=== PATIENT | male | born 1950 | race Caucasian/White ===

== ENCOUNTER 2021-04-07 10:03 | Day surgery (SDC) | payer MEDICARE, OTHER, SELFPAY ==
[2021-04-07 10:15] VITALS: BP 125/87; PULSE 92; RESP 16; TEMP 36.6; O2SAT 97; BMI 28.2
[2021-04-07] MEDS: Lactated Ringers 1,000 ML 15 ML IV (10:42)
--- NOTE | 2021-04-07 11:02 | PCM.HP.BLA ---
History and Physical Date of Admission: 04/07/21 Intake Vital Signs 04/03/21 09:23 Height 6 ft 2 in Weight: 224 lb BMI 28.8 Respiration 18 Intake Visit Reasons: PEG TUBE Chief Complaint: peg [employer] Required: No Is patient in pain?: No Allergies No Known Allergies Allergy (Unverified 04/03/21 09:22) Medications clopidogrel 75 mg tablet 75 mg PO DAILY 03/25/21 [History Confirmed 04/03/21] hydrochlorothiazide 25 mg tablet 25 mg PO DAILY 03/25/21 [History Confirmed 04/03/21] metoprolol succinate 50 mg tablet,extended release 24 hr 50 mg PO DAILY 03/25/21 [History Confirmed 04/03/21] pravastatin 80 mg tablet 80 mg PO DAILY 03/25/21 [History Confirmed 04/03/21] warfarin 2 mg tablet 2 mg PO DAILY 03/25/21 [History Confirmed 04/03/21] PFSH Surgical History History of appendectomy S/P aortic bifurcation bypass graft Family History Father Cancer LUNG Uncle Cancer SKIN CANCER Social History household members: spouse Smoking Status: Former smoker quit date: 04/05/14 pack-years: 144 HPI HPI HPI: MICHELLE FISCHER, is a 70 M who presents to the office today for PEG tube. The patient has tongue cancer and is planning on having radiation therapy soon. Patient was sent in for PEG tube placement for possible dysphagia. ROS General General: Yes weight change, appetite and fatigue; No colon cancer, breast cancer or weakness HEENT HEENT: No difficulty swallowing, eye injury, eye surgery, swollen glands or hoarseness Endo Endocrine: No thyroid disease, diabetes mellitus, thyroid cancer, Hair loss, heat intolerance or cold intolerance Skin Skin: Yes changing moles; No rash Breast Breast: No left breast lump, right breast lump, nipple discharge, breast pain, abnormal mammogram, abnormal US or breast enlargement Musc Musculoskeletal: No back problems, arthritis, rheumatoid arthritis, gout or joint pain Cardio Cardiovascular: Yes atrial fibrillation and high blood pressure; No murmur, pacemaker, heart disease, heart attack, heart stent, palpitations, shortness of breat with exertion or chest pain Psych Psychiatric: No depression, anxiety or hearing voices Resp Respiratory: No shortness of breath, No sleep apnea, No cough, No COPD, No asthma, No emphysema and No wheezing Gastro Gastrointestinal: No abdominal pain, No nausea or vomiting, No diarrhea, No constipation, No blood in stool, No acid reflux, No hemorrhoids, No ulcers, No gallbladder problem and No black,tarry stools Melo Hematologic: Yes blood thinners, No blood disorders, No bleeding, No anemia and No blood clots Neuro Neurologic: No system reviewed and no additional complaints, except as documented, No as per HPI, No abnormal gait, No abnormal hearing, No abnormal movements, No abnormal speech, No behavioral changes, No burning sensations, No confusion, No convulsions, No disequilibrium, No dizziness, No localized weakness, No frequent falls, No headache(s), No lack of coordination, No loss of vision, No memory loss, No numbness, No other visual disturbances, No radicular pain, No restless legs, No sensory deficit, No syncope, No tingling, No tremor(s), No weakness and No other Exam Const General: cooperative Orientation: alert and oriented x3 HENMT Head: normal to inspection Neck Neck: normal visual inspection and full ROM Chest Chest palpation & inspection: normal inspection of the chest Resp Effort & Inspection: normal respiratory effort Auscultation: clear to auscultation bilaterally Cardio Rate: regular rate Rhythm: regular rhythm GI Inspection: non-distended Palpation: soft and nontender Skin General: no rashes or lesions noted Neuro General: patient alert and patient oriented x3 Extrem General: full ROM Psych Appearance: grossly normal Mental Status: mental status grossly normal Assessment and Plan Assessment and Plan (1) Malignant neoplasm of dorsal tongue: Status: Acute Orders: Orders: EGD Today Plan - Dr. Rene Brown MD: I explained endoscopy and PEG placement in detail to the patient. I explained the risks including but not limited to stroke or heart attack with anesthesia, perforation of the GI tract, bleeding, infection. I explained that any of these could necessitate further emergency surgery. The patient understands and all questions were answered sufficiently. The patient wishes to proceed with procedure. I have asked the patient to stop his blood thinners as of today and I will perform procedure on Wednesday. Rene Brown MD Pager: [facility] [address] [place] [address], [address] [place] [address] Office: I have re-examined the patient. There are no clinical changes since date of exam.
[2021-04-07 11:25] VITALS: BP 113/84; BP 125/87; PULSE 94; RESP 16; TEMP 36.3; O2SAT 96
--- NOTE | 2021-04-07 11:26 | OP.EGD_ITS ---
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 Refer to note in patient chart for documentation of history and physical. Complications: No immediate complications. Estimated blood loss: None. Procedure: Pre-Anesthesia Assessment: - Prior to the procedure, a History and Physical was performed, and patient medications and allergies were reviewed. The patient's tolerance of previous anesthesia was also reviewed. The risks and benefits of the procedure and the sedation options and risks were discussed with the patient. All questions were answered, and informed consent was obtained. Prior Anticoagulants: The patient has taken Plavix (clopidogrel), last dose was 4 days prior to procedure. After reviewing the risks and benefits, the patient was deemed in satisfactory condition to undergo the procedure. After obtaining informed consent, the endoscope was passed under direct vision. Throughout the procedure, the patient's blood pressure, pulse, and oxygen saturations were monitored continuously. The gastroscope was introduced through the mouth, and advanced to the second part of duodenum. The upper GI endoscopy was accomplished without difficulty. The patient tolerated the procedure well. Scope In: 11:12:18 AM Scope Out: 11:19:08 AM Total Procedure Duration Time 0 hours 6 minutes 50 seconds Findings: The patient was placed in the supine position for PEG placement. The stomach was insufflated to appose gastric and abdominal holden. A site was located in the body of the stomach with excellent transillumination and manual external pressure for placement. The abdominal wall was marked and prepped in a sterile manner. The area was anesthetized with 5 mL of 0.5% lidocaine. The trocar needle was introduced through the abdominal wall and into the stomach under direct endoscopic view. A snare was introduced through the endoscope and opened in the gastric lumen. The guide wire was passed through the trocar and into the open snare. The snare was closed around the guide wire. The endoscope and snare were removed, pulling the wire out through the mouth. A skin incision was made at the site of needle insertion. The externally removable 20 Fr EndoVive Safety gastrostomy tube was lubricated. The G-tube was tied to the guide wire and pulled through the mouth and into the stomach. The trocar needle was removed, and the gastrostomy tube was pulled out from the stomach through the skin. The external bumper was attached to the gastrostomy tube, and the tube was cut to remove the guide wire. The final position of the gastrostomy tube was confirmed by relook endoscopy, and skin marking noted to be 4 cm at the external bumper. The final tension and compression of the abdominal wall by the PEG tube and external bumper were checked and revealed that the bumper was loose and lightly touching the skin and that the PEG balloon was loose and lightly touching the stomach. The feeding tube was capped, and the tube site cleaned and dressed. Impression: - An externally removable PEG placement was successfully completed. - No specimens collected. Recommendation: - Please follow the post-PEG recommendations including: external bolster snug to abdominal wall, change dressing once per day and clean site with soap and water daily and dry thoroughly. - Discharge patient to home. - Resume previous diet. - Continue present medications. - Resume Coumadin (warfarin) tomorrow and Plavix (clopidogrel) tomorrow at prior doses. 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 All rights reserved. The codes documented in this report are preliminary and upon human relations manager review may be revised to meet current compliance requirements. Rene Brown MD 04/07/2021 11:25:48 AM This report has been signed electronically. Number of Addenda: 0 Note Initiated On: 04/07/2021 10:39 AM
--- NOTE | 2021-04-07 11:26 | OP.CCLET_ITS ---
04/07/2021 Cliff Box Md Re : Upper GI endoscopy procedure for Filipe Kulkarni Dear Dr. Box This procedure was performed on Wednesday, April 07, 2021. My impressions and recommendations are as follows: Impressions : - An externally removable PEG placement was successfully completed. - No specimens collected. Recommendations : - Please follow the post-PEG recommendations including: external bolster snug to abdominal wall, change dressing once per day and clean site with soap and water daily and dry thoroughly. - Discharge patient to home. - Resume previous diet. - Continue present medications. - Resume Coumadin (warfarin) tomorrow and Plavix (clopidogrel) tomorrow at prior doses. My findings are described in the full procedure note, which is enclosed. If I can be of further assistance, please feel free to contact me at Doctor phone number(s): , Work: . Sincerely, Rene Brown MD 04/07/2021 11:25:48 AM This report has been signed electronically.
[2021-04-07 11:30] VITALS: BP 117/89; BP 125/87; PULSE 84; RESP 16; O2SAT 96
[2021-04-07 11:35] VITALS: BP 110/83; BP 125/87; PULSE 81; RESP 16; O2SAT 98
[2021-04-07 11:42] VITALS: BP 122/86; BP 125/87; PULSE 90; RESP 16; TEMP 36.7; O2SAT 99
[2021-04-07 12:01] VITALS: BP 125/87
[2021-04-08 09:54] LABS: INR Fingerstick 1.2
== END 2021-04-07 23:59 | disposition home or self-care (01) ==
LOC: EN 10:10 → AC 10:11
PROVIDERS: Visit Provider Surgery
PROC: 0DJ08ZZ Inspection of Upper Intestinal Tract, Via Natural or Artificial Opening Endoscopic (ICD-10-PCS; CPT 43235; principal; 2021-04-07 10:55)
DX: Z43.1 Encounter for attention to gastrostomy (principal); C02.0 Malignant neoplasm of dorsal surface of tongue; I48.91 Unspecified atrial fibrillation; R63.30 Feeding difficulties, unspecified; Z79.01 Long term (current) use of anticoagulants; Z79.02 Long term (current) use of antithrombotics/antiplatelets; Z79.899 Other long term (current) drug therapy; I10 Essential (primary) hypertension; Z87.891 Personal history of nicotine dependence
CPT/HCPCS: 43246; 36416; 85610; J7120

== ENCOUNTER 2021-06-26 09:30 | Outpatient (RCR) | payer MEDICARE, OTHER, SELFPAY ==
--- NOTE | 2021-04-25 11:25 | HP.SP.AD_ITS ---
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) Date of Onset of Diagnosis: 01/20/2021 Previous speech therapy: Yes Results: Patient provided jaw exercise program after surgery at [facility] on 02/25/2021. Pt reports completing exercises 1X daily. 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 04/07/2020 Prophylactic PEG tube placed. Plan was made to complete adjuvant radiation therapy consisting of 6000 cGy delivered to the oral tongue and 5400 cGy delivered to the bilateral neck levels 2 through 4 and supraclavicular fossa. 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 Right Hearing Abillity: Normal Left Hearing Abillity: Normal Visual Assistive Devices: None Patients Living Arrangements: , Dannielle Munoz Patient Allergies - Allergies Allergies No Known Allergies Allergy (Verified 04/23/21 09:33) Subjective Oral Motor - Comments Comments: Reduced lingual ROM Objective Oral Motor - Oral Status Dentition: Missing Teeth Additional: Upper dentition pulled - Labial Impairment: Mild Observation at Rest: WNL Closure: WNL Pucker: WNL Retraction: Mild - Labial Comments Comments: L sided weakness noted with retraction - Lingual Impairment: Moderate Observation: Deviated Left Protrusion: Mild Retraction: Moderate Lateralization: Moderate Involuntary Movement: No - Lingual Comments Comments: Decreased ROM for R sided lateralization due to resection and reconstruction of tongue - Jaw Impairment: WNL Opening: WNL Closing: WNL Opening Measurement: 51 - Respiratory Status Respiratory Status: Room Air Subjective Dysphagia - Symptoms Reported Symptoms/Problems with: Food gets stuck, Weight Loss, Xerostomia Other: Difficulty chewing with upper dentition pulled. - Current Diet Solids Current Diet: Mechanical Soft - Current Diet Liquids Current Liquids: Thin Objective Dysphagia - Administered by Administered by: Self - Thin Liquids Administred via: Cup, Straw Symptoms: Delayed Laryngeal Elevation: WFL Oral Holding: No Patient Report: No sensation of pharyngeal stasis. Comments: Mild delay initiating swallow. The patient consumed single and sequential sips via cup and straw with no overt s/s of aspiration. Audible swallow noted for sips via cup. - Pureed Symptoms: Immediate Laryngeal Elevation: WFL Oral Holding: No Patient Report: No reports for pharyngeal stasis. He reports occasional pocketing of solid trials on L side. Pt declined trials of crushed Tova Do[place] cookie softened in applesauce, although he states consuming ground textures at home without difficulty. Comments: Pt consumed bites of applesauce with timely swallow, no overt s/s of aspiration. - Results Swallowing Within Normal Limits: Yes Swallowing Diagnosis: Oropharyngeal Phase Dysphagia Severity: Mild Dysphagia Assessment - Swallowing Impairment Contributing Factors to Swallowing Impairment: Reduced Oral Strength/Coordination/Sensation, Mastication Inefficiency, Delayed Swallow Initiation - Impact Impact on Safety & Functioning: Risk for Aspiration, Risk for Inadequate Nutrition/Hydration - Diet Texture Recommendations Solids Other: Mechanical Soft Other Solid: Minced and moist textures Liquids: Thin - Safety Saftey Precautions/Swallowing Recommendations (Check all that Apply): Small Sips & Bites when Eating, Alternate Liquids & Solids Other: Finger sweep to clear pocketing FOIS - Functional Oral Intake Scale Total oral diet with multiple consistencies, but requiring special preparation or compensations: Level 5 Plan - Plan Plan: Will recommend the patient for skilled outpatient dysphagia therapy to address oropharyngeal dysphagia related to tongue cancer and to provide the patient further education re: prophylactic oropharyngeal exercise program, diet texture recommendations, aspiration precautions, and compensatory strategies to decrease risk for aspiration. Additionally, will provide ongoing assessment of diet tolerance during and post radiation treatment. Without skilled ST services, the patient is at risk for aspiration, weight loss, and malnutrition. - Recommendations MBS: Yes Treatment Warranted: Yes - Frequency Frequency: Every Other Week Duration: 12 Months - Prognosis Prognosis: Good - Goals that are Established: Determination:: Goals will be added/modified as deemed necessary and appropriate. Therapy will be discontinued when results of re-evaluation indicate therapy is no longer needed or lack of progress has been documented. - Goal #1-5 Goal #1: The patient will consume least restrictive diet textures without overt s/s of aspiration with minimal verbal cues for use of compensatory strategies to decrease risk for aspiration. Goal #2: The patient will complete an oropharyngeal exercise program during and post radiation treatment X10 repetitions, 3-5X daily independently to improve and maintain strength, ROM, and coordination of swallowing mechanism (effortful breath hold and swallow, effortful swallow, Carolyn, jaw stretch). Goal #3: The patient will participate in MBS study to objectively assess swallow function and provide recommendations for safest, least restrictive diet and compensatory strategies to reduce risk for aspiration. Goal #4: The patient will participate in ongoing education re: short-term and long-term effects of radiation treatment on swallow function and management of symptoms that contribute to dysphagia. Education - Patient has Indicated that the Following Identified Educational Needs: None The Patient has indicated that they have no educational or learning abilities that may effect their care.: Yes - Patient Instruction Patient Education: Diagnosis, Treatment Plan, Goals, Safety Precautions, Diet Level, Home Exercise Program Other Education: Education provided regarding the potential impacts of radiation treatment on swallow function during and post treatment, including effects such as mucositis, dysgeusia, radiation fibrosis, and disuse atrophy which may result in restricted range of motion and weakness of swallowing mechanism. Discussed impaired swallowing and increased risk for aspiration, aspiration related illnesses, weight loss, and malnutrition. Discussed importance for speech therapy to monitor and address dysphagia both during and post radiation treatment to maintain optimal swallow function through continued education and prophylactic exercise program. Provided the patient a handout and demonstration of prophylactic oropharyngeal exercise program, as well as jaw ROM exercises. The patient provided return demonstration with all exercises with minimal verbal cues and demonstration. The patient would benefit from continued training to monitor proper execution of exercises and encourage strict adherence to exercise program. Person Taught: Patient Teaching Method: Discussion, Demonstration, Handout, Teach back Response to teaching: Return demonstration, Verbalize understanding, Reinforcement needed, Has Prior Knowledge
--- NOTE | 2022-02-24 10:33 | ST ---
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 Shady Cheng Reason for Referral: Objectively assess swallow function, risk for aspiration, and determine recommendations for least restrictive diet textures and compensatory strategies to improve safety of swallow. 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 From 04/14/2021?05/28/2021 he received adjuvant radiation therapy. The patient's called radiation oncologist, Dr. Light, on 02/20/2022 concerned about the patient experiencing increased weakness and 30-lb weight loss since completion of radiation treatment. Per , he was refusing ED evaluation. Dr. Light requested DRUG SAFETY ASSOCIATE call pt and to touch base re: oral intake and dysphagia. Pt is currently consuming ~32oz of water by mouth and 2-4 cartons of supplement via PEG tube daily. He has almost no food by mouth. Per Dr. Light, pt should be having ~8 cartons of supplement via PEG daily. DRUG SAFETY ASSOCIATE recommended MBSS to assess concerns for dysphagia contributing to decreased oral intake, as well as evaluation with animal cytologist to re-instruct the patient in PEG tube feedings. Pt's was unable to connect with the animal cytologist over the phone on 02/20/2022. DRUG SAFETY ASSOCIATE and Dr. Light both recommended calling EMS if pt's feels her requires emergency medical care. MBSS planned for today and animal cytologist, Adilene, available to speak with patient following the evaluation. Current Diet Ordered: Thin liquids Dentition: Natural Teeth - missing all upper teeth - he has dentures but reports they are ill-fitting Respiratory Status: Oxygenating on Room Air - Penetration-Aspiration Scale Penetration-Aspiration Scale: OBJECTIVE ASSESSMENT OF SWALLOW FUNCTION (QUANTITATIVE ? PER TRIAL): PENETRATION / ASPIRATION SCALE (PABON): 1 = does not enter airway 2 = enters airway/above vocal folds/ejected 3 = enters airway/above vocal folds/not ejected 4 = enters airway/contacts vocal folds/ejected 5 = enters airway/contacts vocal folds/not ejected 6 = enters airway/below vocal folds/ejected 7 = enters airway/below vocal folds/not ejected despite effort 8 = enters airway/below vocal folds/no effort VIDEOFLOROSCOPIC SCALE SCORE (PABON): Grade I = aspiration of material that has penetrated into the laryngeal vestibule, intact cough reflex Grade II = aspiration < 10 % of the bolus, intact cough reflex Grade III = aspiration of < 10 % of the bolus, reduced cough reflex or aspiration of > 10 % of the bolus, intact cough reflex Grade IV = aspiration of > 10 % of the bolus, reduced cough reflex - Penetration-Aspiration Scale Score Thin Liquid via teaspoon Result: 4= enters airway/contacts vocal folds/ejected Thin Liquid via teaspoon Trial 2 Result: 3= enters airways/above vocal folds/not ejected Thin Liquid via large single sip from cup Result: 3= enters airways/above vocal folds/not ejected Novelty Thick Liquid via small single sip from cup Result: 2= enter airway/above vocal folds/ejected Honey Thick Liquid via teaspoon Result: 1= does not enter airway Pudding via teaspoon with esophageal screen Result: 1= does not enter airway 1/4 Cookie Result: 1= does not enter airway Thin Liquid via sequential sips from straw Result: 8= enters airway/below vocal folds/no effort Thin Liquid via small single sip from cup Effortful swallow Result: 2= enter airway/above vocal folds/ejected Thin Liquid via small single sip from cup Effortful swallow Trial 2 Result: 2= enter airway/above vocal folds/ejected - Oral Phase Labial Seal: No Labial Escape Tongue Control During Bolus Hold: Posterior escape of less than half of bolus Bolus Preparation/Mastication: Slow prolonged chewing/mashing with complete recollection Bolus Transport/Lingual Motion: Delayed initiation of tongue motion Oral Residue: Trace residue lining oral structures - Pharyngeal Phase Initiation of Pharyngeal Swallow: Bolus head in pyriforms Soft Palate Elevation: No bolus between soft palate and pharyngeal wall Laryngeal Elevation: Partial superior movement thyroid cart/partial apprx aryt-epig petiole Anterior Hyoid Excursion: No anterior movement - Little to no anterior hyoid excursion Epiglottic Movement: Complete inversion Laryngeal Vestibule Closure at Height of Swallow: Incomplete; narrow column of air/contrast in laryngeal vestibule Pharyngoesophageal Segment Opening: Parital distension and partial duration; parital obstruction of flow Tongue Base Retraction: Narrow column of contrast between tongue base & post. pharyngeal wall Pharyngeal Residue: Collection of residue within or on pharyngeal structures - Esophageal Phase Esophageal Clearance: Esophageal retention - Treatment Strategies Effects of treatment strategies attemped:: Effortful swallow = effective. Decreased bolus size/rate = effective. - Diagnosis/Impression Diagnosis: Mild-moderate oropharyngeal phase dysphagia (R13.12) Impression: The oral phase is primarily marked by... -Decreased bolus control with <1/2 of the bolus spilling posteriorly to the pyriforms prior to swallow onset observed with thin liquids especially. -Delayed tongue motion for A-P transport -Prolonged, but adequate mastication of 1/4 cookie. The pharyngeal phase is primarily marked by... -Decreased airway closure during the swallow due to little to no anterior hyoid excursion and decreased laryngeal elevation. -Mildly decreased tongue base retraction, moderately decreased UES opening/duration, and decreased pharyngeal stripping wave with resulting moderate pharyngeal residues after the swallow. -SILENT aspiration of thin liquids by sequential straw. Consistent laryngeal penetration across thin and nectar thick liquid consistencies. Use of decreased sip size and effortful swallow was most effective in decreasing and ejecting laryngeal penetration during the swallow. The esophageal phase is primarily marked by... -Mild esophageal retention of pudding in upper and mid esophagus with no retrograde flow observed. This esophageal retention of cookie and pudding in the UES somewhat improved provided thin liquid wash. - Recommendations Diet: Thin Liquids - Minced and Moist textures (IDDSI Level 5) Comment: Will recommend majority of nutrition and hydration be met via PEG tube prior to patient demonstrating the ability to increase oral intake. Compensatory Strategies: Small Bites, Small Sips - Sips one at a time, Hard swallows on each sip, No Straws, Slow Rate, Alternate bites/solids and sips/liquids, Sitting upright, Remain sitting upright for 30 minutes after PO intake Supervision: Assist as needed - Family to assist with verbal cues as needed Recommend Repeat Modified Barium Swallow: Yes - Repeat MBSS in 6 months to re-evaluate swallow function and aspiration risk. The patient is at risk for worsening dysphagia s/p radiation. Education Completed: 1. Described result of evaluation., 4. Family/caregivers understand evaluation & agree w/ goals & tx plan., 7. Pt requires further education on strategies & risks. Comment: DRUG SAFETY ASSOCIATE RECOMMENDED EMERGENCY ROOM EVALUATION DUE TO CONCERNS FOR MALNUTRITION AND DEHYDRATION. Additionally, pt's verbalized concern for weakness, falls, and her inability to adequately care for him in his current state. DRUG SAFETY ASSOCIATE escorted the patient to a consult with animal cytologist, Adilene, following the MBSS. Adilene called DRUG SAFETY ASSOCIATE following their consult and informed the DRUG SAFETY ASSOCIATE that the patient and his have gone to the emergency room for further evaluation. - Status Active ST Patient: Active - Contact Information [facility] Speech Therapy:: Jessica Tolbert M.A. [facility]-DRUG SAFETY ASSOCIATE Speech-Language Pathologist [facility] [address] [place] [address] [email or web address] [phone] 02/23/22 10:04 02/23/22 1126 <Electronically signed by Jessica Tolbert M.A. CCC-DRUG SAFETY ASSOCIATE> Date/Time Jessica Tolbert M.A. CCC-DRUG SAFETY ASSOCIATE
--- NOTE | 2022-03-04 10:25 | ST ---
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 Shady Cheng Reason for Referral: Objectively assess swallow function, risk for aspiration, and determine recommendations for least restrictive diet textures and compensatory strategies to improve safety of swallow. 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 From 04/14/2021?05/28/2021 he received adjuvant radiation therapy. The patient's called radiation oncologist, Dr. Light, on 02/20/2022 concerned about the patient experiencing increased weakness and 30-lb weight loss since completion of radiation treatment. Per , he was refusing ED evaluation. Dr. Light requested MUSIC COMPOSER call pt and to touch base re: oral intake and dysphagia. Pt is currently consuming ~32oz of water by mouth and 2-4 cartons of supplement via PEG tube daily. He has almost no food by mouth. Per Dr. Light, pt should be having ~8 cartons of supplement via PEG daily. MUSIC COMPOSER recommended MBSS to assess concerns for dysphagia contributing to decreased oral intake, as well as evaluation with tension machine operator to re-instruct the patient in PEG tube feedings. Pt's was unable to connect with the tension machine operator over the phone on 02/20/2022. MUSIC COMPOSER and Dr. Light both recommended calling EMS if pt's feels her requires emergency medical care. MBSS planned for today and tension machine operator, Adilene, available to speak with patient following the evaluation. Current Diet Ordered: Thin liquids Dentition: Natural Teeth - missing all upper teeth - he has dentures but reports they are ill-fitting Respiratory Status: Oxygenating on Room Air - Penetration-Aspiration Scale Penetration-Aspiration Scale: OBJECTIVE ASSESSMENT OF SWALLOW FUNCTION (QUANTITATIVE ? PER TRIAL): PENETRATION / ASPIRATION SCALE (PABON): 1 = does not enter airway 2 = enters airway/above vocal folds/ejected 3 = enters airway/above vocal folds/not ejected 4 = enters airway/contacts vocal folds/ejected 5 = enters airway/contacts vocal folds/not ejected 6 = enters airway/below vocal folds/ejected 7 = enters airway/below vocal folds/not ejected despite effort 8 = enters airway/below vocal folds/no effort VIDEOFLOROSCOPIC SCALE SCORE (PABON): Grade I = aspiration of material that has penetrated into the laryngeal vestibule, intact cough reflex Grade II = aspiration < 10 % of the bolus, intact cough reflex Grade III = aspiration of < 10 % of the bolus, reduced cough reflex or aspiration of > 10 % of the bolus, intact cough reflex Grade IV = aspiration of > 10 % of the bolus, reduced cough reflex - Penetration-Aspiration Scale Score Thin Liquid via teaspoon Result: 4= enters airway/contacts vocal folds/ejected Thin Liquid via teaspoon Trial 2 Result: 3= enters airways/above vocal folds/not ejected Thin Liquid via large single sip from cup Result: 3= enters airways/above vocal folds/not ejected Oark Thick Liquid via small single sip from cup Result: 2= enter airway/above vocal folds/ejected Honey Thick Liquid via teaspoon Result: 1= does not enter airway Pudding via teaspoon with esophageal screen Result: 1= does not enter airway 1/4 Cookie Result: 1= does not enter airway Thin Liquid via sequential sips from straw Result: 8= enters airway/below vocal folds/no effort Thin Liquid via small single sip from cup Effortful swallow Result: 2= enter airway/above vocal folds/ejected Thin Liquid via small single sip from cup Effortful swallow Trial 2 Result: 2= enter airway/above vocal folds/ejected - Oral Phase Labial Seal: No Labial Escape Tongue Control During Bolus Hold: Posterior escape of less than half of bolus Bolus Preparation/Mastication: Slow prolonged chewing/mashing with complete recollection Bolus Transport/Lingual Motion: Delayed initiation of tongue motion Oral Residue: Trace residue lining oral structures - Pharyngeal Phase Initiation of Pharyngeal Swallow: Bolus head in pyriforms Soft Palate Elevation: No bolus between soft palate and pharyngeal wall Laryngeal Elevation: Partial superior movement thyroid cart/partial apprx aryt-epig petiole Anterior Hyoid Excursion: No anterior movement - Little to no anterior hyoid excursion Epiglottic Movement: Complete inversion Laryngeal Vestibule Closure at Height of Swallow: Incomplete; narrow column of air/contrast in laryngeal vestibule Pharyngoesophageal Segment Opening: Parital distension and partial duration; parital obstruction of flow Tongue Base Retraction: Narrow column of contrast between tongue base & post. pharyngeal wall Pharyngeal Residue: Collection of residue within or on pharyngeal structures - Esophageal Phase Esophageal Clearance: Esophageal retention - Treatment Strategies Effects of treatment strategies attemped:: Effortful swallow = effective. Decreased bolus size/rate = effective. - Diagnosis/Impression Diagnosis: Mild-moderate oropharyngeal phase dysphagia (R13.12) Impression: The oral phase is primarily marked by... -Decreased bolus control with <1/2 of the bolus spilling posteriorly to the pyriforms prior to swallow onset observed with thin liquids especially. -Delayed tongue motion for A-P transport -Prolonged, but adequate mastication of 1/4 cookie. The pharyngeal phase is primarily marked by... -Decreased airway closure during the swallow due to little to no anterior hyoid excursion and decreased laryngeal elevation. -Mildly decreased tongue base retraction, moderately decreased UES opening/duration, and decreased pharyngeal stripping wave with resulting moderate pharyngeal residues after the swallow. -SILENT aspiration of thin liquids by sequential straw. Consistent laryngeal penetration across thin and nectar thick liquid consistencies. Use of decreased sip size and effortful swallow was most effective in decreasing and ejecting laryngeal penetration during the swallow. The esophageal phase is primarily marked by... -Mild esophageal retention of pudding in upper and mid esophagus with no retrograde flow observed. This esophageal retention of cookie and pudding in the UES somewhat improved provided thin liquid wash. - Recommendations Diet: Thin Liquids - Minced and Moist textures (IDDSI Level 5) Comment: Will recommend majority of nutrition and hydration be met via PEG tube prior to patient demonstrating the ability to increase oral intake. Compensatory Strategies: Small Bites, Small Sips - Sips one at a time, Hard swallows on each sip, No Straws, Slow Rate, Alternate bites/solids and sips/liquids, Sitting upright, Remain sitting upright for 30 minutes after PO intake Supervision: Assist as needed - Family to assist with verbal cues as needed Recommend Repeat Modified Barium Swallow: Yes - Repeat MBSS in 6 months to re-evaluate swallow function and aspiration risk. The patient is at risk for worsening dysphagia s/p radiation. Education Completed: 1. Described result of evaluation., 4. Family/caregivers understand evaluation & agree w/ goals & tx plan., 7. Pt requires further education on strategies & risks. Comment: MUSIC COMPOSER RECOMMENDED EMERGENCY ROOM EVALUATION DUE TO CONCERNS FOR MALNUTRITION AND DEHYDRATION. Additionally, pt's verbalized concern for weakness, falls, and her inability to adequately care for him in his current state. MUSIC COMPOSER escorted the patient to a consult with tension machine operator, Adilene, following the MBSS. Adilene called MUSIC COMPOSER following their consult and informed the MUSIC COMPOSER that the patient and his have gone to the emergency room for further evaluation. - Status Active ST Patient: Active - Contact Information [facility] Speech Therapy:: Jessica Tolbert M.A. [facility]-MUSIC COMPOSER Speech-Language Pathologist [facility] [address] [place] [address] [email or web address] [phone] 02/23/22 10:04 02/23/22 1126 <Electronically signed by Jessica Tolbert M.A. CCC-MUSIC COMPOSER> Date/Time Jessica Tolbert M.A. CCC-MUSIC COMPOSER
--- NOTE | 2022-03-04 11:38 | HP.SPREEV_ITS ---
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 Goal 1 Status: No progress - Per pt's , who met with PERFORMANCE SPECIALIST today (Pt did not attend to his appointment as he stayed in bed), the patient continues to have limited oral intake. Since MBSS 02/23/2022, the patient is fearful to drink water as it showed he aspirated sequential sips by straw. PERFORMANCE SPECIALIST strongly recommended to pt's that the patient does drink, but that he use the recommended precautions - small sips, hard swallows, sips one at a time, no straws. PERFORMANCE SPECIALIST is concerned that is decline in swallow function since his initial swallowing evaluation is likely due to disuse atrophy from poor oral intake. Previous Goal #2: The patient will complete an oropharyngeal exercise program during and post radiation treatment X10 repetitions, 3-5X daily independently to improve and maintain strength, ROM, and coordination of swallowing mechanism (effortful breath hold and swallow, effortful swallow, Carolyn, jaw stretch). Goal 2 Status: No progress - Pt has poor adherence to home oropharyngeal exercise program. He would greatly benefit in re-education of exercise program, as well as education in rationale for exercises. Previous Goal #3: The patient will participate in MBS study to objectively assess swallow function and provide recommendations for safest, least restrictive diet and compensatory strategies to reduce risk for aspiration. Goal 3 Status: Progressing - MBSS completed 02/23/2022. Will recommend repeat MBSS in 6 months to monitor risk for worsening dysphagia s/p radiation treatment for malignant neoplasm of dorsal tongue. Previous Goal #4: The patient will participate in ongoing education re: short- term and long-term effects of radiation treatment on swallow function and management of symptoms that contribute to dysphagia. Goal 4 Status: Progressing - The patient verbalized understanding of education re: short-term and long-term effects of radiation treatment that impact swallow function; however, he would benefit from continued education to encourage strict adherence to home oropharyngeal exercise program to improve oropharyngeal swallow function and decrease aspiration risk. Objective Dysphagia - Safety Other: Finger sweep to clear pocketing Modified Barium Results Hx MBS Report Entered: Yes MBS Results (from prior exam): 03/04/22 10:25 Speech Therapy by Jessica Tolbert [facility] Speech Pathology [address] [place] [address] Modified Barium Swallow Study MR#: [id number] Acct: [id number] Name: MICHELLE FISCHER Rep #:[id number] : 1950 71 From: Jessica Galeana, [facility])-PERFORMANCE SPECIALIST Modified Barium Swallow - Patient Information Study Date: 02/23/22 Study Time: 09:00 Direct Billable Minutes: 120 Total Minutes procedure & reportin Diagnosis: Malignant neoplasm of dorsal tongue (C02.0) Referring Physician: Mark Light - Order through Dr. Shady Cheng Reason for Referral: Objectively assess swallow function, risk for aspiration, and determine recommendations for least restrictive diet textures and compensatory strategies to improve safety of swallow. 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 From 04/14/2021?05/28/2021 he received adjuvant radiation therapy. The patient's called radiation oncologist, Dr. Light, on 02/20/2022 concerned about the patient experiencing increased weakness and 30-lb weight loss since completion of radiation treatment. Per , he was refusing ED evaluation. Dr. Light requested PERFORMANCE SPECIALIST call pt and to touch base re: oral intake and dysphagia. Pt is currently consuming ~32oz of water by mouth and 2-4 cartons of supplement via PEG tube daily. He has almost no food by mouth. Per Dr. Light, pt should be having ~8 cartons of supplement via PEG daily. PERFORMANCE SPECIALIST recommended MBSS to assess concerns for dysphagia contributing to decreased oral intake, as well as evaluation with education and development manager to re-instruct the patient in PEG tube feedings. Pt's was unable to connect with the education and development manager over the phone on 02/20/2022. PERFORMANCE SPECIALIST and Dr. Light both recommended calling EMS if pt's feels her requires emergency medical care. MBSS planned for today and education and development manager, Adilene, available to speak with patient following the evaluation. Current Diet Ordered: Thin liquids Dentition: Natural Teeth - missing all upper teeth - he has dentures but reports they are ill-fitting Respiratory Status: Oxygenating on Room Air - Penetration-Aspiration Scale Penetration-Aspiration Scale: OBJECTIVE ASSESSMENT OF SWALLOW FUNCTION (QUANTITATIVE ? PER TRIAL): PENETRATION / ASPIRATION SCALE (PABON): 1 = does not enter airway 2 = enters airway/above vocal folds/ejected 3 = enters airway/above vocal folds/not ejected 4 = enters airway/contacts vocal folds/ejected 5 = enters airway/contacts vocal folds/not ejected 6 = enters airway/below vocal folds/ejected 7 = enters airway/below vocal folds/not ejected despite effort 8 = enters airway/below vocal folds/no effort VIDEOFLOROSCOPIC SCALE SCORE (PABON): Grade I = aspiration of material that has penetrated into the laryngeal vestibule, intact cough reflex Grade II = aspiration < 10 % of the bolus, intact cough reflex Grade III = aspiration of < 10 % of the bolus, reduced cough reflex or aspiration of > 10 % of the bolus, intact cough reflex Grade IV = aspiration of > 10 % of the bolus, reduced cough reflex - Penetration-Aspiration Scale Score Thin Liquid via teaspoon Result: 4= enters airway/contacts vocal folds/ejected Thin Liquid via teaspoon Trial 2 Result: 3= enters airways/above vocal folds/not ejected Thin Liquid via large single sip from cup Result: 3= enters airways/above vocal folds/not ejected [place] Thick Liquid via small single sip from cup Result: 2= enter airway/above vocal folds/ejected Honey Thick Liquid via teaspoon Result: 1= does not enter airway Pudding via teaspoon with esophageal screen Result: 1= does not enter airway 1/4 Cookie Result: 1= does not enter airway Thin Liquid via sequential sips from straw Result: 8= enters airway/below vocal folds/no effort Thin Liquid via small single sip from cup Effortful swallow Result: 2= enter airway/above vocal folds/ejected Thin Liquid via small single sip from cup Effortful swallow Trial 2 Result: 2= enter airway/above vocal folds/ejected - Oral Phase Labial Seal: No Labial Escape Tongue Control During Bolus Hold: Posterior escape of less than half of bolus Bolus Preparation/Mastication: Slow prolonged chewing/mashing with complete recollection Bolus Transport/Lingual Motion: Delayed initiation of tongue motion Oral Residue: Trace residue lining oral structures - Pharyngeal Phase Initiation of Pharyngeal Swallow: Bolus head in pyriforms Soft Palate Elevation: No bolus between soft palate and pharyngeal wall Laryngeal Elevation: Partial superior movement thyroid cart/partial apprx aryt- epig petiole Anterior Hyoid Excursion: No anterior movement - Little to no anterior hyoid excursion Epiglottic Movement: Complete inversion Laryngeal Vestibule Closure at Height of Swallow: Incomplete; narrow column of air/contrast in laryngeal vestibule Pharyngoesophageal Segment Opening: Parital distension and partial duration; parital obstruction of flow Tongue Base Retraction: Narrow column of contrast between tongue base & post. pharyngeal wall Pharyngeal Residue: Collection of residue within or on pharyngeal structures - Esophageal Phase Esophageal Clearance: Esophageal retention - Treatment Strategies Effects of treatment strategies attemped:: Effortful swallow = effective. Decreased bolus size/rate = effective. - Diagnosis/Impression Diagnosis: Mild-moderate oropharyngeal phase dysphagia (R13.12) Impression: The oral phase is primarily marked by... -Decreased bolus control with <1/2 of the bolus spilling posteriorly to the pyriforms prior to swallow onset observed with thin liquids especially. -Delayed tongue motion for A-P transport -Prolonged, but adequate mastication of 1/4 cookie. The pharyngeal phase is primarily marked by... -Decreased airway closure during the swallow due to little to no anterior hyoid excursion and decreased laryngeal elevation. -Mildly decreased tongue base retraction, moderately decreased UES opening/duration, and decreased pharyngeal stripping wave with resulting moderate pharyngeal residues after the swallow. -SILENT aspiration of thin liquids by sequential straw. Consistent laryngeal penetration across thin and nectar thick liquid consistencies. Use of decreased sip size and effortful swallow was most effective in decreasing and ejecting laryngeal penetration during the swallow. The esophageal phase is primarily marked by... -Mild esophageal retention of pudding in upper and mid esophagus with no retrograde flow observed. This esophageal retention of cookie and pudding in the UES somewhat improved provided thin liquid wash. - Recommendations Diet: Thin Liquids - Minced and Moist textures (IDDSI Level 5) Comment: Will recommend majority of nutrition and hydration be met via PEG tube prior to patient demonstrating the ability to increase oral intake. Compensatory Strategies: Small Bites, Small Sips - Sips one at a time, Hard swallows on each sip, No Straws, Slow Rate, Alternate bites/solids and sips/liquids, Sitting upright, Remain sitting upright for 30 minutes after PO intake Supervision: Assist as needed - Family to assist with verbal cues as needed Recommend Repeat Modified Barium Swallow: Yes - Repeat MBSS in 6 months to re- evaluate swallow function and aspiration risk. The patient is at risk for worsening dysphagia s/p radiation. Education Completed: 1. Described result of evaluation., 4. Family/caregivers understand evaluation & agree w/ goals & tx plan., 7. Pt requires further education on strategies & risks. Comment: PERFORMANCE SPECIALIST RECOMMENDED EMERGENCY ROOM EVALUATION DUE TO CONCERNS FOR MALNUTRITION AND DEHYDRATION. Additionally, pt's verbalized concern for weakness, falls, and her inability to adequately care for him in his current state. PERFORMANCE SPECIALIST escorted the patient to a consult with education and development manager, Adilene, following the MBSS. Adilene called PERFORMANCE SPECIALIST following their consult and informed the PERFORMANCE SPECIALIST that the patient and his have gone to the emergency room for further evaluation. - Status Active ST Patient: Active - Contact Information [facility] Speech Therapy:: Jessica Tolbert M.A. [facility]PERFORMANCE SPECIALIST Speech-Language Pathologist [place] [address] [place] [address] [email or web address] [phone] 02/23/22 10:04 02/23/22 [id number] <Electronically signed by Jessica Tolbert M.A., CCC-PERFORMANCE SPECIALIST> Date/Time Jessica Tolbert M.A., CCC-PERFORMANCE SPECIALIST Initialized on 03/04/22 10:25 - END OF NOTE Swallowing Performance Scale - Swallowing Performance Scale Swallowing Performance Scale Result: 4 Mild to Moderate FOIS - Functional Oral Intake Scale Tube dependent with minimal attempts of food or liquid: Level 2 Plan - Plan Plan: Per pt and report, the patient continues to experience weakness (difficulty standing for long, lightheadedness when standing) and difficulty providing himself adequate nutrition and hydration by PEG tube or mouth. He did go to the ER following MBSS and meeting with education and development manager 02/23/2022, but was not admitted to the hospital. PERFORMANCE SPECIALIST spoke with radiation oncologist, Dr. Light, and is recommending HH ST and PT evaluations, as well as HH nursing care. The patient would greatly benefit from ST services to address mild-moderate oropharyngeal phase dysphagia. Will recommend implementing oropharyngeal exercise program to improve strength of swallowing mechanism, train in strategies to decrease risk for aspiration, and continue education re: rn long term care effects of radiation that impact swallow function. The patient is at great risk for worsening dysphagia, weight loss, malnutrition, and dehydration without skilled ST services. Due to PERFORMANCE SPECIALIST and concerns for depression and cognitive- linguistic deficits (increased difficulty with memory per ), PERFORMANCE SPECIALIST reached out to the patient's PCP office (Dr. Cliff Box) via phone call and recommended he reach out to the patient and his regarding these concerns. - Recommendations MBS: Yes Treatment Warranted: Yes Treatment Warranted: Dysphagia Comment: Repeat MBSS recommended in 6 months to evaluate risk for worsening dysphagia and aspiration risk. - Progress Prognosis: Fair - Frequency Frequency: 1-2x /Week Additional (Frequency): frequency subject to change during POC based on the patient's needs Duration: 12 Months - Goals that are Established Determination:: Goals will be added/modified as deemed necessary and appropriate. Therapy will be discontinued when results of re-evaluation indicate therapy is no longer needed or lack of progress has been documented. - Goal #1-5 Goal #1: The patient will consume least restrictive diet textures without overt s/s of aspiration with minimal verbal cues for use of compensatory strategies to decrease risk for aspiration. Goal #2: The patient will complete an oropharyngeal exercise program during and post radiation treatment X10 repetitions, 3-5X daily independently to improve and maintain strength, ROM, and coordination of swallowing mechanism (effortful breath hold and swallow, effortful swallow, Carolyn, jaw stretch). Goal #3: The patient will participate in MBS study to objectively assess swallow function and provide recommendations for safest, least restrictive diet and compensatory strategies to reduce risk for aspiration. Goal #4: The patient will participate in ongoing education re: short-term and long-term effects of radiation treatment on swallow function and management of symptoms that contribute to dysphagia.
--- NOTE | 2022-03-20 15:50 | HP.SP.DC_ITS ---
ST Discharge Summary - Discharged: Discharge: The patient was evaluated by OP ST 04/25/2021 to assess oropharyngeal dysphagia secondary to squamous cell carcinoma of the oral tongue status post left glossectomy and left neck dissection of levels 1?4 followed by free flap reconstruction (02/25/2021), and dental clearance (03/11/2021). From 04/14/2021?05/28/2021 he received adjuvant radiation therapy. He attended few speech therapy sessions initially. He was seen for MBSS 02/23/2022 due to increased difficulty swallowing and significant weight loss. He was recommended for return to ; however, the patient was unable to get out of bed to attend sessions. He was then recommended for [facility]. Unfortunately, dysphagia treatment is no longer warranted as the patient has .
== END 2021-06-26 19:00 | disposition home or self-care (01) ==
LOC: SP 09:30
PROVIDERS: Referring Provider Student in an Organized Health Care Education/Training Program; Visit Provider Student in an Organized Health Care Education/Training Program
DX: C02.0 Malignant neoplasm of dorsal surface of tongue (principal); R13.12 Dysphagia, oropharyngeal phase
CPT/HCPCS: 92526; 92610

== ENCOUNTER 2022-02-20 13:04 | Outpatient (RCR) | payer MEDICARE, OTHER, SELFPAY | END 2022-03-04 23:59 | LOC: NS 13:04 | PROVIDERS: Visit Provider Student in an Organized Health Care Education/Training Program | DX: Z71.3 Dietary counseling and surveillance (principal) ==

== ENCOUNTER 2022-02-23 09:59 | Emergency (ER) | payer MEDICARE, OTHER, SELFPAY ==
[2022-02-23 10:00] VITALS: BP 92/80; PULSE 56; RESP 14; TEMP 36.8; O2SAT 98; BMI 22.7
--- NOTE | 2022-02-23 10:32 | EKG12_ITS ---
Test Reason : WEAKNESS Blood Pressure : / mmHG Vent. Rate : 097 BPM Atrial Rate : 000 BPM P-R Int : 000 ms QRS Dur : 088 ms QT Int : 334 ms P-R-T Axes : 000 011 037 degrees QTc Int : 424 ms Atrial fibrillation Abnormal ECG Confirmed by VALERIO LAKHANI, AVA ([id number]), book or script editor STANLEY HENDRICKSON ([id number]) on 02/24/2022 8:21:12 AM Referred By: Confirmed By:AVA LUO MD
--- NOTE | 2022-02-23 10:46 | EX.ED.DYSGE1 ---
HPI History of Present Illness Chief Complaint: Weakness Informant: patient and spouse/S.O. Narrative Narrative: Patient presents with generalized weakness and possible dehydration. He has a history of tongue cancer. He had a feeding tube placed about a year ago. He states he is recently started doubling up his tube feeds and has recently gained 2 pounds. On his last swallow test he apparently did have evidence of aspiration. He states he is really not taking anything by mouth anymore. There was concern from dietary that he may be getting too dehydrated and was sent to the emergency room. He has not had fever or chills. [facility] Medical History Alcohol use Cancer Cardiology follow-up encounter Difficulty chewing Difficulty swallowing Former smoker Hepatitis High cholesterol History of amputation of finger History of atrial fibrillation History of echocardiogram Hx of tongue cancer Hypertension Leg cramps Redness of skin Syncope Wears glasses Home Medications clopidogrel 75 mg tablet 75 mg PO DAILY 03/25/21 [History Last Taken 04/03/21] metoprolol succinate 50 mg tablet,extended release 24 hr 50 mg PO QHS 03/25/21 [History Last Taken Unknown] pravastatin 80 mg tablet 80 mg PO QHS 03/25/21 [History Last Taken Unknown] warfarin 2 mg tablet 2 mg PO TUTH 03/25/21 [History Last Taken 04/03/21] warfarin 3 mg tablet 3 mg PO SUMOWEFRSA 02/23/22 [History Last Taken Unknown] Allergy/AdvReac Type Severity Reaction Status Date / Time No Known Allergies Allergy Verified 02/23/22 10:00 Family History Father Cancer LUNG Uncle Cancer SKIN CANCER Surgical History History of appendectomy Hx of aorto-femoral bypass Social History household members: spouse Smoking Status: Former smoker quit date: 04/05/14 pack-years: 144 ROS ROS ED Constitutional Constitutional ED: Denies chills or fever(s) Eyes Eyes: Denies change in vision or discharge from eye(s) ENT ENT ED: Denies discharge from eye(s), rhinorrhea or sore throat Cardiovascular Cardiovascular: Denies chest pain or palpitations Respiratory/Chest Respiratory/Chest: Denies cough or dyspnea Gastrointestinal Gastrointestinal: Denies abdominal pain, diarrhea, nausea or vomiting Genitourinary Genitourinary ED: Reports other Details: Slightly dark discoloration to urine. ; Denies dysuria Musculoskeletal Musculoskeletal: Denies back pain or extremity pain Integumentary Denies Abrasions or rash Neurologic Neurologic: Reports weakness; Denies headache(s) Allergic/Immunologic Allergic/Immunologic ED: Denies lip swelling or urticaria EXAM Physical Exam Const Vital Signs: 02/23/22 10:00 02/23/22 12:00 Temperature 98.2 F 97.8 F Temperature Source Temporal Temporal Pulse Rate 56 L 114 H Respiratory Rate 14 18 Blood Pressure 92/80 165/98 H Blood Pressure Mean 84 120 Pulse Ox 98 99 Oxygen Delivery Method Room Air Room Air Positive well nourished and well developed General Appearance ED: well developed HEENT Reports normocephalic and head/scalp atraumatic Eyes PERRL and EOMs intact bilaterally Neck supple Chest Wall inspection of chest normal and palpation of chest normal Resp normal respiratory effort and clear to auscultation bilaterally Cardio Rate: tachycardic Rhythm: abnormal rhythm irregularly irregular GI GI Narrative: Abdomen is soft and nontender. Feeding tube in place. Hypoactive bowel sounds present. Palpation: soft Extremity normal to inspection Neuro oriented x3 and no sensory deficits noted Sensorium / Orientation: alert Motor Exam: strength 5/5 throughout Psych mental status grossly normal Skin no rashes or lesions noted MDM MDM MDM Narrative Medical decision making narrative: Patient placed on shelter monitor. EKG, chest x-ray, lab work obtained. Patient given IV fluids. Lab Data Attestation: I reviewed the patient's lab results. Labs: Laboratory Results - last 24 hr 02/23/22 02/23/22 02/23/22 11:01 11:01 11:01 WBC 7.9 RBC 4.65 Hgb 13.5 Hct 42.2 MCV 90.8 MCH 29.0 MCHC 32.0 RDW Std Deviation 47.7 H RDW Coeff of Luciana 14.3 Plt Count 176 MPV 10.1 Immature Gran % (Auto) 0.500 Neut % (Auto) 77.8 H Lymph % (Auto) 10.7 L [place] % (Auto) 10.2 H Eos % (Auto) 0.4 Baso % (Auto) 0.4 Absolute Neuts (auto) 6.1 Absolute Lymphs (auto) 0.84 Nucleated RBC % 0 PT 23.7 H INR 2.2 Sodium 142 Potassium 4.3 Chloride 106 Carbon Dioxide 33.0 H Anion Gap 3 L BUN 36 H Creatinine 1.00 Estim Creat Clear Calc 76.94 Est GFR (MDRD) Af Amer 95 Est GFR (MDRD) Non-Af 78 BUN/Creatinine Ratio 36.0 H Glucose 121 H Calcium 9.6 Urine Color Urine Clarity Urine pH Ur Specific [place] Urine Protein Urine Glucose (UA) Urine Ketones Urine Occult Blood Urine Nitrite Urine Bilirubin Urine Urobilinogen Ur Leukocyte Esterase Urine RBC Urine WBC Ur Squamous Epith Cells Urine Bacteria Urine Mucus 02/23/22 12:15 WBC RBC Hgb Hct MCV MCH MCHC RDW Std Deviation RDW Coeff of [place] Plt Count MPV Immature Gran % (Auto) Neut % (Auto) Lymph % (Auto) Bath % (Auto) Eos % (Auto) Baso % (Auto) Absolute Neuts (auto) Absolute Lymphs (auto) Nucleated RBC % PT INR Sodium Potassium Chloride Carbon Dioxide Anion Gap BUN Creatinine Estim Creat Clear Calc Est GFR (MDRD) Af Amer Est GFR (MDRD) Non-Af BUN/Creatinine Ratio Glucose Calcium Urine Color Yellow Urine Clarity Clear Urine pH 6.5 Ur Specific [place] 1.015 Urine Protein 15 H Urine Glucose (UA) Normal Urine Ketones 5 H Urine Occult Blood Negative Urine Nitrite Negative Urine Bilirubin Negative Urine Urobilinogen 4 H Ur Leukocyte Esterase 25 H Urine RBC 0 SEEN Urine WBC 0-5 SEEN Ur Squamous Epith Cells 0 SEEN Urine Bacteria 0 SEEN Urine Mucus 0 SEEN Radiography Chest X-Ray - ED: 1 View, Read by ED Physician, Chronic Changes and No Infiltrates Diagnostic Testing: Clinical Impression(s) from Imaging Studies Chest X-Ray 02/23/22 11:02 IMPRESSION: No acute cardiopulmonary abnormality. Electronically Signed: Nemesio Pisano MD at 11:23 EST , EKG Initial EKG: Attestation: I personally reviewed and interpreted this EKG as follows: Interpretation: Atrial Fibrillation (Atrial fibrillation with ventricular rate of 97 bpm. No acute ischemia.) Treatment and Re-Evaluation Narrative: On repeat evaluation patient feels well. Lab work is unremarkable with normal renal function. INR is therapeutic at 2.2. Urinalysis reveals no bacteria. Chest x-ray per my interpretation was chronic changes with no focal infiltrate. EKG reveals underlying A. fib which patient has chronic history of. At this time patient is comfortable with discharge to home. He will continue tube feeds for hydration and nourishment. Return instructions given. Discharge Plan Triage Chief Complaint: Weakness ED Provider: Peggy Roper Dx/Rx/DC Orders Clinical Impression: Weakness Instructions: ED Weakness (Uncertain Cause) Prescriptions: No Action clopidogrel 75 mg tablet 75 mg PO DAILY metoprolol succinate 50 mg tablet extended release 24 hr 50 mg PO QHS pravastatin 80 mg tablet 80 mg PO QHS warfarin 2 mg tablet 2 mg PO TUTH warfarin 3 mg Tablet 3 mg PO SUMOWEFRSA Primary Care Provider: Cliff Box Referrals: Cliff Box MD [Primary Care Provider] - 1 Week if not improving Disposition Disposition: Home, Self Care
--- NOTE | 2022-02-23 11:02 | RAD_ITS ---
EXAM: XR CHEST, 1 VIEW CLINICAL INDICATION: aspiration TECHNIQUE: Frontal view of the chest. This report was created using [employer] report generation technology. COMPARISON: None. FINDINGS: LUNGS AND PLEURAL SPACES: Normal. No consolidation or edema. No pneumothorax. No effusion. HEART: Normal heart size. MEDIASTINUM: No mediastinal or hilar mass. BONES/JOINTS: No acute abnormality. SOFT TISSUES: Normal. UPPER ABDOMEN: Elevated left hemidiaphragm. RAD/Chest 1 View (Portable) IMPRESSION: No acute cardiopulmonary abnormality. Electronically Signed: Nemesio Pisano MD at 11:23 [facility] ,
[2022-02-23 11:09] LABS: Absolute Lymphocyte Count 0.84 X10^3/uL (0.83-4.51); Absolute Neutrophil Count 6.1 X10^3/uL (2.0-7.7); Basophil# 0.03 X10^3/uL; Basophil% 0.4 % (0-1); Eosinophil# 0.03 X10^3/uL; Eosinophils% 0.4 % (0-5); Hematocrit 42.2 % (40-54); Hemoglobin 13.5 g/dL (13.0-16.5); Lymphocyte # 0.84 X10^3/ul (0.83-4.51); Lymphocyte % 10.7 % (19-41); Mean Corpuscular Volume 90.8 fL (80-94); Mean Platelet Vol. 10.1 fl (6.2-12.0); Monocyte% 10.2 % (0-10); NRBC Flagged by Analyzer 0 % (0-5); Neutrophil # 6.13 X10^3/uL (2.7-7.7); Neutrophil % 77.8 % (47-70); Platelet Count 176 K/mm3 (150-450); RBC Distribution Width CV 14.3 % (11.6-14.6); RBC Distribution Width SD 47.7 fl (35.1-43.9); Red Blood Count 4.65 M/mm3 (4.6-6.2); White Blood Count 7.9 K/mm3 (4.4-11.0)
[2022-02-23] MEDS: 0.9% Normal Saline 1,000 ML 1000 ML IV (11:10)
[2022-02-23 11:19] LABS: International Normalized Ratio 2.2; Prothrombin Time (Protime)PT. 23.7 SECONDS (11.7-14.9)
[2022-02-23 11:26] LABS: Anion Gap 3 (5-15); BUN 36 mg/dL (7-18); Calcium,Total 9.6 mg/dL (8.5-10.1); Chloride 106 mmol/L (98-107); EST Glomerular Filtration Rate 78 mL/min (>60); Est Glom Filt Rate - Afr Amer 95 mL/min (>60); Estimated Creatinine Clearance 76.94 ml/min; Glucose 121 mg/dL (74-106); Potassium 4.3 mmol/L (3.5-5.1); Sodium Level 142 mmol/L (136-145)
[2022-02-23 12:00] VITALS: BP 165/98; PULSE 114; RESP 18; TEMP 36.6; O2SAT 99
[2022-02-23 12:24] LABS: Bacteria 0 SEEN /hpf (None Seen); Mucous, Urine 0 SEEN /hpf (<or=2+); Red Blood Cells-Urine 0 SEEN /hpf (0-5); Squamous Epithelial Cells - UA 0 SEEN /hpf (0-5)
[2022-02-23 12:52] LABS: Color, Urine Yellow (Yellow); Glucose, Dipstick Normal (Normal); Ketone-Dipstick 5 mg/dl (Negative); Leukocyte Esterase-Dipstick 25 /ul (Negative); Nitrite-Dipstick Negative (Negative); Occult Blood-Urine Negative /ul (Negative); Protein-Dipstick 15 mg/dl (Negative); Specific Gravity, Urine 1.015 (1.002-1.030); Urine Bilirubin Dipstick Negative (Negative); Urine Clarity Clear (Clear); Urine Urobilinogen 4 mg/dl (Normal); Urine pH 6.5 (5.0 - 8.0)
[2022-02-23] MEDS: 0.9% Normal Saline 1,000 ML 150 ML IV (13:07)
[2022-02-23 13:21] LABS: White Blood Cells 0-5 SEEN /hpf (0-5)
[2022-02-23 13:46] VITALS: BP 134/75; PULSE 84; RESP 16; TEMP 36.6; O2SAT 99
== END 2022-02-23 13:49 | disposition home or self-care (01) ==
PROVIDERS: Emergency Provider Emergency Medicine; Visit Provider Emergency Medicine
DX: R53.1 Weakness (principal); C02.0 Malignant neoplasm of dorsal surface of tongue; E78.00 Pure hypercholesterolemia, unspecified; I10 Essential (primary) hypertension; R13.10 Dysphagia, unspecified; Z79.01 Long term (current) use of anticoagulants; Z79.02 Long term (current) use of antithrombotics/antiplatelets; Z79.899 Other long term (current) drug therapy; Z87.891 Personal history of nicotine dependence
CPT/HCPCS: 71045; 74230; 80048; 81001; 85025; 85610; 92611; 93005; 96360; 96361; 99283; J7030

== ENCOUNTER → 2022-02-23 | Outpatient (CLI) | payer MEDICARE, OTHER, SELFPAY ==
--- NOTE | 2022-02-23 10:04 | SP.MBSS_ITS ---
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 Shady Cheng Reason for Referral: Objectively assess swallow function, risk for aspiration, and determine recommendations for least restrictive diet textures and compensatory strategies to improve safety of swallow. 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 From 04/14/2021?05/28/2021 he received adjuvant radiation therapy. The patient's called radiation oncologist, Dr. Light, on 02/20/2022 concerned about the patient experiencing increased weakness and 30-lb weight loss since completion of radiation treatment. Per , he was refusing ED evaluation. Dr. Light requested ENGINEERING TECHNICAL WRITER call pt and to touch base re: oral intake and dysphagia. Pt is currently consuming ~32oz of water by mouth and 2-4 cartons of supplement via PEG tube beulah ly. He has almost no food by mouth. Per Dr. Light, pt should be having ~8 cartons of supplement via PEG daily. ENGINEERING TECHNICAL WRITER recommended MBSS to assess concerns for dysphagia contributing to decreased oral intake, as well as evaluation with slps to re-instruct the patient in PEG tube feedings. Pt's was unable to connect with the slps over the phone on 02/20/2022. ENGINEERING TECHNICAL WRITER and Dr. Light both recommended calling EMS if pt's feels her requires emergency medical care. MBSS planned for today and slps, Adilene, available to speak with patient following the evaluation. Current Diet Ordered: Thin liquids Dentition: Natural Teeth - missing all upper teeth - he has dentures but reports they are ill-fitting Respiratory Status: Oxygenating on Room Air - Penetration-Aspiration Scale Penetration-Aspiration Scale: OBJECTIVE ASSESSMENT OF SWALLOW FUNCTION (QUANTITATIVE ? PER TRIAL): PENETRATION / ASPIRATION SCALE (PABON): 1 = does not enter airway 2 = enters airway/above vocal folds/ejected 3 = enters airway/above vocal folds/not ejected 4 = enters airway/contacts vocal folds/ejected 5 = enters airway/contacts vocal folds/not ejected 6 = enters airway/below vocal folds/ejected 7 = enters airway/below vocal folds/not ejected despite effort 8 = enters airway/below vocal folds/no effort VIDEOFLOROSCOPIC SCALE SCORE (PABON): Grade I = aspiration of material that has penetrated into the laryngeal vestibule, intact cough reflex Grade II = aspiration < 10 % of the bolus, intact cough reflex Grade III = aspiration of < 10 % of the bolus, reduced cough reflex or aspiration of > 10 % of the bolus, intact cough reflex Grade IV = aspiration of > 10 % of the bolus, reduced cough reflex - Penetration-Aspiration Scale Score Thin Liquid via teaspoon Result: 4= enters airway/contacts vocal folds/ejected Thin Liquid via teaspoon Trial 2 Result: 3= enters airways/above vocal folds/not ejected Thin Liquid via large single sip from cup Result: 3= enters airways/above vocal folds/not ejected [place] Thick Liquid via small single sip from cup Result: 2= enter airway/above vocal folds/ejected Honey Thick Liquid via teaspoon Result: 1= does not enter airway Pudding via teaspoon with esophageal screen Result: 1= does not enter airway 1/4 Cookie Result: 1= does not enter airway Thin Liquid via sequential sips from straw Result: 8= enters airway/below vocal folds/no effort Thin Liquid via small single sip from cup Effortful swallow Result: 2= enter airway/above vocal folds/ejected Thin Liquid via small single sip from cup Effortful swallow Trial 2 Result: 2= enter airway/above vocal folds/ejected - Oral Phase Labial Seal: No Labial Escape Tongue Control During Bolus Hold: Posterior escape of less than half of bolus Bolus Preparation/Mastication: Slow prolonged chewing/mashing with complete recollection Bolus Transport/Lingual Motion: Delayed initiation of tongue motion Oral Residue: Trace residue lining oral structures - Pharyngeal Phase Initiation of Pharyngeal Swallow: Bolus head in pyriforms Soft Palate Elevation: No bolus between soft palate and pharyngeal wall Laryngeal Elevation: Partial superior movement thyroid cart/partial apprx aryt- epig petiole Anterior Hyoid Excursion: No anterior movement - Little to no anterior hyoid excursion Epiglottic Movement: Complete inversion Laryngeal Vestibule Closure at Height of Swallow: Incomplete; narrow column of air/contrast in laryngeal vestibule Pharyngoesophageal Segment Opening: Parital distension and partial duration; parital obstruction of flow Tongue Base Retraction: Narrow column of contrast between tongue base & post. pharyngeal wall Pharyngeal Residue: Collection of residue within or on pharyngeal structures - Esophageal Phase Esophageal Clearance: Esophageal retention - Treatment Strategies Effects of treatment strategies attemped:: Effortful swallow = effective. Decreased bolus size/rate = effective. - Diagnosis/Impression Diagnosis: Mild-moderate oropharyngeal phase dysphagia (R13.12) Impression: The oral phase is primarily marked by... -Decreased bolus control with <1/2 of the bolus spilling posteriorly to the pyriforms prior to swallow onset observed with thin liquids especially. -Delayed tongue motion for A-P transport -Prolonged, but adequate mastication of 1/4 cookie. The pharyngeal phase is primarily marked by... -Decreased airway closure during the swallow due to little to no anterior hyoid excursion and decreased laryngeal elevation. -Mildly decreased tongue base retraction, moderately decreased UES opening/duration, and decreased pharyngeal stripping wave with resulting moderate pharyngeal residues after the swallow. -SILENT aspiration of thin liquids by sequential straw. Consistent laryngeal penetration across thin and nectar thick liquid consistencies. Use of decreased sip size and effortful swallow was most effective in decreasing and ejecting laryngeal penetration during the swallow. The esophageal phase is primarily marked by... -Mild esophageal retention of pudding in upper and mid esophagus with no retrograde flow observed. This esophageal retention of cookie and pudding in the UES somewhat improved provided thin liquid wash. - Recommendations Diet: Thin Liquids - Minced and Moist textures (IDDSI Level 5) Comment: Will recommend majority of nutrition and hydration be met via PEG tube prior to patient demonstrating the ability to increase oral intake. Compensatory Strategies: Small Bites, Small Sips - Sips one at a time, Hard swallows on each sip, No Straws, Slow Rate, Alternate bites/solids and sips/liquids, Sitting upright, Remain sitting upright for 30 minutes after PO intake Supervision: Assist as needed - Family to assist with verbal cues as needed Recommend Repeat Modified Barium Swallow: Yes - Repeat MBSS in 6 months to re- evaluate swallow function and aspiration risk. The patient is at risk for worsening dysphagia s/p radiation. Education Completed: 1. Described result of evaluation., 4. Family/caregivers understand evaluation & agree w/ goals & tx plan., 7. Pt requires further education on strategies & risks. Comment: ENGINEERING TECHNICAL WRITER RECOMMENDED EMERGENCY ROOM EVALUATION DUE TO CONCERNS FOR MALNUTRITION AND DEHYDRATION. Additionally, pt's verbalized concern for weakness, falls, and her inability to adequately care for him in his current state. ENGINEERING TECHNICAL WRITER escorted the patient to a consult with slps, Adilene, following the MBSS. Adilene called ENGINEERING TECHNICAL WRITER following their consult and informed the ENGINEERING TECHNICAL WRITER that the patient and his have gone to the emergency room for further evaluation. - Status Active ST Patient: Active - Contact Information [facility] Speech Therapy:: Jessica Tolbert M.A. [facility]-ENGINEERING TECHNICAL WRITER Speech-Language Pathologist [facility] [address] [place] [address] [phone] 02/23/22 10:04
== END | disposition home or self-care (01) ==
LOC: RAD 09:04
DX: C02.0 Malignant neoplasm of dorsal surface of tongue (principal)
CPT/HCPCS: 74230; 92611